=== PATIENT | female | born 1975 | race Caucasian/White ===

== ENCOUNTER 2016-12-13 01:52 | Emergency (ER) | payer OTHER ==
[~2016-12-13] VITALS: Ht 162.6 cm; Wt 53.0 kg
[~2016-12-13 01:52] MED LIST: FLEXERIL10 MG PO; FLEXERIL5 MG PO; LORTAB 5-325 M1 EACH PO; MEDROL DOSEPAK4 MG PO; MOBIC7.5 MG PO; NAPROSYN500 MG PO; PERCOCET 5/31 TABLET PO; PREDNISONE10 MG PO; ULTRAM50 MG PO; VALIUM2 MG PO
[2016-12-13] MEDS ORDERED: AMOXICILLIN500 M1 PO (02:43)
[2016-12-13 02:52] VITALS: BP 143/90
== END 2016-12-13 02:52 | disposition home or self-care (01) ==
LOC: EME 01:52
DX: K08.89 Other specified disorders of teeth and supporting structures (principal)
CPT/HCPCS: 99281; 99283